=== PATIENT | female | born 1995 | race Caucasian/White ===

== ENCOUNTER 2016-06-14 01:10 | Observation (INO) | payer BC, OTHER ==
[~2016-06-14] VITALS: Ht 175.3 cm; Wt 106.2 kg
[2016-06-14] MEDS ORDERED: ONDANSETRON INJ 2 MG/ML 2 ML VIAL IV STA ×2 (01:32→04:29)
[2016-06-14] MEDS ORDERED: SODIUM CHLORIDE 0.9% 1000ML 1,000 ML IV STA ×2 (01:32→04:29)
[2016-06-14 01:51] LABS: HEMATOCRIT 37.4 % (37-47); MEAN CELL VOLUME 80.4 fL (80-100); MEAN CORPUSCULAR HEMOGLOBIN 27.7 pg (25-34); MEAN CORPUSCULAR HGB CONC 34.5 g/dl (32-36); MEAN PLATELET VOLUME 9.5 fL (7.4-10.4); PLATELET COUNT 274 K/uL (130-400); RED BLOOD COUNT 4.65 M/uL (4.2-5.4); WHITE BLOOD COUNT 15.19 K/uL (4.8-10.8)
[2016-06-14 02:09] LABS: BASO % 0.1 %; BASO ABS # 0.01 K/uL (0-0.2); CALCIUM 8.7 mg/dl (8.5-10.1); COMPLETE YES; EOS % 0.5 %; IG% 0.3 %; LYMPH % 8.2 %; LYMPH ABS # 1.25 K/uL (1.2-3.4); MONO % 5.1 %; NEUT % 85.8 %; POTASSIUM 4.1 mmol/L (3.5-5.1)
[2016-06-14] MEDS ORDERED: PROMETHAZINE HCL INJ 25 MG in SODIUM CHLORIDE 0.9% 50ML 50 ML IV STA (03:14)
--- NOTE | 2016-06-14 04:47 | EMERGENCY ROOM VISIT NOTE ---
History Report prepared by Christy: Bud Frias Under the Supervision of: Dr. Yue Allison D.O. First contact with patient: 01:18 Chief Complaint: ABDOMINAL PAIN Stated Complaint: FOOD POISONING History of Present Illness The patient is a 21 year old female who presents to the Emergency Room with complaints of constant abdominal pain that began 4.5 hours prior to arrival. The patient describes her abdominal pain as "sharp" and rates is as 5/10 in severity. The patient states that she ordered takeout from [employer] and began to experience her symptoms 30 minutes after eating. She has vomited multiple times, and had multiple bouts of diarrhea. She has taken 3 Motrin in the last four hours with no relief. 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 A total of 10 systems reviewed and were otherwise negative. Past Medical & Surgical The patient reports no past medical/surgical histories. Family History Diabetes mellitus FHx: cancer Social History Smoking Status: Never Smoker Alcohol Use: none Drug Use: none Marital Status: single Occupation Status: employed, [employer] student Current/Historical Medications No Active Prescriptions or Reported Meds Allergies Coded Allergies: No Known Allergies (Unverified , 06/14/16) Physical Exam Vital Signs Date Time Temp Pulse Resp B/P Pulse Ox O2 Delivery O2 Flow Rate FiO2 06/14/16 06:30 95 18 111/55 97 Room Air 06/14/16 04:46 85 20 111/72 96 Room Air 06/14/16 02:50 82 18 101/63 96 Room Air 06/14/16 01:11 36.9 112 20 113/81 98 Room Air Physical Exam General: Patient is vomiting on exam and diaphoretic. HEENT: Head - normocephalic and atraumatic Pupils are equal, round, and reactive to light. Extraocular eye muscles are intact, and sclera are anicteric. Nose - moist nasal mucosa without discharge. Mouth - moist buccal mucosa. Oropharynx is nonerythematous and there is no tonsillar exudate or edema noted. Neck: Supple; no JVD, nuchal rigidity, cervical lymphadenopathy. Heart: Tachycardiac rate with normal rhythm. There is a normal S1 and S2 with no murmurs, clicks, or gallops appreciated. Lungs: Clear to auscultation bilaterally with no wheezes, rales, or rhonchi. Abdomen: Soft, diffusely tender, nondistended, with good bowel sounds. There are no palpable pulsatile masses or hepatosplenomegaly. There is no guarding, rigidity, or rebound noted. Extremities: No evidence of cyanosis, clubbing, or edema. There are easily palpable peripheral pulses. Skin: warm and dry with good turgor and no rashes. Medical Decision & Procedures Laboratory Results 06/14/16 01:40 Red Blood Count 4.65, Mean Corpuscular Volume 80.4, Mean Corpuscular Hemoglobin 27.7, Mean Corpuscular Hemoglobin Concent 34.5, Mean Platelet Volume 9.5, Neutrophils (%) (Auto) 85.8, Lymphocytes (%) (Auto) 8.2, Monocytes (%) (Auto) 5.1, Eosinophils (%) (Auto) 0.5, Basophils (%) (Auto) 0.1, Neutrophils # (Auto) 13.03, Lymphocytes # (Auto) 1.25, Monocytes # (Auto) 0.77, Eosinophils # (Auto) 0.08, Basophils # (Auto) 0.01 06/14/16 01:40 Test 06/14/16 01:40 06/14/16 04:43 White Blood Count 15.19 K/uL (4.8-10.8) Red Blood Count 4.65 M/uL (4.2-5.4) Hemoglobin 12.9 g/dL (12.0-16.0) Hematocrit 37.4 % (37-47) Mean Corpuscular Volume 80.4 fL (80-100) Mean Corpuscular Hemoglobin 27.7 pg (25-34) Mean Corpuscular Hemoglobin Concent 34.5 g/dl (32-36) Platelet Count 274 K/uL (130-400) Mean Platelet Volume 9.5 fL (7.4-10.4) Neutrophils (%) (Auto) 85.8 % Lymphocytes (%) (Auto) 8.2 % Monocytes (%) (Auto) 5.1 % Eosinophils (%) (Auto) 0.5 % Basophils (%) (Auto) 0.1 % Neutrophils # (Auto) 13.03 K/uL (1.4-6.5) Lymphocytes # (Auto) 1.25 K/uL (1.2-3.4) Monocytes # (Auto) 0.77 K/uL (0.11-0.59) Eosinophils # (Auto) 0.08 K/uL (0-0.5) Basophils # (Auto) 0.01 K/uL (0-0.2) RDW Standard Deviation 44.7 fL (36.4-46.3) RDW Coefficient of Variation 15.3 % (11.5-14.5) Immature Granulocyte % (Auto) 0.3 % Immature Granulocyte # (Auto) 0.05 K/uL (0.00-0.02) Anion Gap 12.0 mmol/L (3-11) Est Creatinine Clear Calc Drug Dose 115.5 ml/min Estimated GFR () 93.3 Estimated GFR (Non- 80.5 BUN/Creatinine Ratio 14.0 (10-20) Calcium Level 8.7 mg/dl (8.5-10.1) Total Bilirubin 0.6 mg/dl (0.2-1) Direct Bilirubin 0.1 mg/dl (0-0.2) Aspartate Amino Transf (AST/SGOT) 40 U/L (15-37) Alanine Aminotransferase (ALT/SGPT) 81 U/L (12-78) Alkaline Phosphatase 49 U/L (45-117) Total Protein 7.6 gm/dl (6.4-8.2) Albumin 4.0 gm/dl (3.4-5.0) Lipase 96 U/L (73-393) Urine Color DK YELLOW Urine Appearance CLEAR (CLEAR) Urine pH 7.5 (4.5-7.5) Urine Specific [place] 1.032 (1.000-1.030) Urine Protein NEG (NEG) Urine Glucose (UA) NEG (NEG) Urine Ketones NEG (NEG) Urine Occult Blood NEG (NEG) Urine Nitrite NEG (NEG) Urine Bilirubin NEG (NEG) Urine Urobilinogen NEG (NEG) Urine Leukocyte Esterase TRACE (NEG) Urine WBC (Auto) 1-5 /hpf (0-5) Urine RBC (Auto) 0-4 /hpf (0-4) Urine Hyaline Casts (Auto) 0 /lpf (0-5) Urine Epithelial Cells (Auto) >30 /lpf (0-5) Urine Bacteria (Auto) 1+ (NEG) Urine Renal Epithelial Cells /lpf (0-5) Urine Mucus PRESENT (NONE PRSENT) Urine Yeast (Auto) (NONE PRSENT) Urine Test NEG (NEG) Laboratory results per my review. Medications Administered Medications (Trade) Dose Ordered Sig/Kristofer Route Start Time Stop Time Status Last Admin Dose Admin Sodium Chloride (Nss 1000ml) 1,000 ml @ 999 mls/hr Q1H1M STAT IV 06/14/16 01:32 06/14/16 02:32 DC 06/14/16 01:32 999 MLS/HR Ondansetron HCl 4 mg 4 mg NOW STAT IV 06/14/16 01:32 06/14/16 01:34 DC 06/14/16 01:32 4 MG Promethazine HCl 25 mg/Sodium Chloride 51 ml @ 204 mls/hr NOW STAT IV 06/14/16 03:14 06/14/16 03:28 DC 06/14/16 03:24 204 MLS/HR Sodium Chloride (Nss 1000ml) 1,000 ml @ 250 mls/hr Q4H STAT IV 06/14/16 04:29 06/14/16 08:28 06/14/16 04:35 250 MLS/HR Ondansetron HCl (Zofran Inj) 4 mg NOW STAT IV 06/14/16 04:29 06/14/16 04:30 DC 06/14/16 04:35 4 MG Procedure Medications Ordered: Zofran, Sodium Chloride, Promethazine HCl, ED Course 0130: Past medical records reviewed. The patient was evaluated in room B2. A complete history and physical exam was performed. An IV lock was initiated and labs were drawn as above. 0132: Ordered Zofran 4 mg IV, Sodium Chloride 1000 mL @ 999 mL/hr IV. 0253: I reevaluated the patient at this time, she is sleeping but her vitals are stable. 0314: The nursing staff informed me that the patient began to vomit at this time. 0314: Ordered Promethazine HCl 51 mL @ 204 mL/hr IV. 0349: The patient is sound asleep and hemodynamically stable at this time. 0421: I reevaluated the patient at this time. She is starting to vomit and abdominal pain is still present. 0428: I checked on the patient at this time. She is pale and diaphoretic and about to vomit again. I reexamined her abdomen, the pain could not be localized. The abdominal pain is diffuse. It does not localize to any specific part of the abdomen. 0429: Ordered Zofran 4 mg IV, Sodium Chloride 1000 mL @ 250 mL/hr IV. 0515: The patient is asleep again. I discussed the case with Dr. Aurelia Vanessa, he will evaluate the patient for further treatment. Medical Decision The patient is a 21 year old female who presents to the emergency department with vomiting and diarrhea. Differential diagnosis include; food borne illness, gastroenteritis, viral illness, appendicitis, dehydration, pancreatitis. Laboratory results were reviewed and show; a white count of 15.1, stable hemoglobin and hematocrit, 85% neutrophils, normal renal function, glucose of 124, AST of 40, ALT of 81, and lipase of 96. This is a 21-year-old female patient developed a very sudden onset of diffuse abdominal pain and vomiting. She's been here in the emergency department for some time with multiple episodes of antiemetics and still has persistent vomiting. The pain in her abdomen is not localized. Patient's nausea and vomiting are only temporarily treated with IV Zofran and IV Phenergan. She is on a normal saline drip at this time. I feel she will need inpatient care to further control her symptoms. Consults Time Called: 501 Consulting Physician: Dr. Aurelia Vanessa Returned Call: 05 I discussed the case with Dr. Aurelia Vanessa, he will evaluate the patient for further treatment. Impression Primary Impression: Intractable vomiting Scribe Attestation The scribe's documentation has been prepared under my direction and personally reviewed by me in its entirety. I confirm that the note above accurately reflects all work, treatment, procedures, and medical decision making performed by me. Departure Information Dispostion Being Evaluated By Hospitalist Prescriptions No Active Prescriptions or Reported Meds Referrals [facility] (PCP) Patient Instructions A Signature Page
[2016-06-14 05:34] LABS: MANUAL MICROSCOPIC REQUIRED? NO; REVIEW REQ? YES; URINE APPEARANCE CLEAR (CLEAR); URINE BILIRUBIN NEG (NEG); URINE COLOR DK YELLOW; URINE EPITHELIAL CELL AUTO >30 /lpf (0-5); URINE NITRITE NEG (NEG); URINE PH 7.5 (4.5-7.5); URINE SPECIFIC GRAVITY 1.032 (1.000-1.030); UROBILINOGEN NEG (NEG)
[2016-06-14 06:03] LABS: URINE MUCUS PRESENT (NONE PRSENT)
[2016-06-14 08:02] VITALS: O2SAT 97; Ht 175.3 cm; Wt 106.2 kg
[2016-06-14] MEDS ORDERED: PROMETHAZINE HCL INJ 25 MG in SODIUM CHLORIDE 0.9% 50ML 50 ML IV PRN (09:00)
[2016-06-14] MEDS ORDERED: ONDANSETRON INJ 2 MG/ML 2 ML VIAL IV PRN (09:00)
[2016-06-14 09:39] VITALS: O2SAT 98
[2016-06-14 10:30] VITALS: BP 91/56; PULSE 90; TEMP 37.3; O2SAT 98
[2016-06-14] MEDS ORDERED: SODIUM CHLORIDE 0.9% 1000ML 1,000 ML IV SCH (10:30)
[2016-06-14] MEDS ORDERED: ACETAMINOPHEN 325 MG TAB PO PRN (10:30)
[2016-06-14] MEDS ORDERED: IV FLUIDS COMPLETED PRN (10:45)
--- NOTE | 2016-06-14 14:34 | History and Physical ---
History & Physical Date & Time of Service: Jun 14, 2016 at 14:24 Chief Complaint: Intractable Vomiting Primary Care Physician: [facility] History of Present Illness Source: patient, hospital records 21 yo female with no significant medical history, presented with acute onset of vomiting and diarrhea. She was feeling well, ordered some take out. Shortly after finishing her food she started to feel ill and then vomited several times. Shortly after that her stools were loose. This all started around 7pm last night. Over night she continued to have intractable vomiting and loose stools. She came to the ED for evaluation. She was tachycardic, WBC elevated but electrolytes stable and renal function normal. She required several doses of anti-emetics but still was having vomiting. After several hours and the patient was not feeling well an admission was requested. She denies any severe abdominal pain. She did experience some cold sweats. No bloody diarrhea and in fact her last BM was prior to arrival in the ED. No one else ate the food. No sick contacts to her knowledge and no recent travel. Past Medical/Surgical History none Family History Diabetes mellitus FHx: cancer Mother - ovarian cancer Aunt - breast cancer Social History Smoking Status: Never Smoker Drug Use: none Marital Status: single Occupational Status: employed, [employer] student Allergies Coded Allergies: No Known Allergies (Unverified , 06/14/16) Home Medications No Active Prescriptions or Reported Meds Review of Systems Constitutional: + chills, + fatigue, + sweats, + weakness, No fever, No weight loss Eyes: No diplopia, No discharge, No eye pain, No problem reported, No redness, No worsening of vision ENT: No dental problems, No hearing loss, No nasal symptoms, No problem reported, No sore throat, No tinnitus, No trouble swallowing, No unusual epistaxis Respiratory: No cough, No dyspnea at rest, No dyspnea on exertion, No hemoptysis, No problem reported, No shortness of breath, No sputum, No wheezing Cardiovascular: No PND, No chest pain, No claudication, No edema, No orthopnea , No palpitations, No problem reported Abdomen: + diarrhea, + nausea, + vomiting, No GI bleeding, No constipation, No pain Musculoskeletal: No calf pain, No joint pain, No muscle pain, No problem reported, No swelling Genitourinary - Female: No dysuria, No urinary frequency, No urinary incontinence, No urinary urgency Neurologic: No balance problems, No memory loss, No numbness/tingling, No paralysis, No problem reported, No vertigo, No weakness Psychiatric: No anhedonism, No anxiety, No depression symptoms, No insomnia, No problem reported, No substance abuse Endocrine: No excessive thirst, No excessive urination, No fatigue, No problem reported Hematologic / Lymphatic: No abnormal bleeding/bruising, No clotting problems, No night sweats, No problem reported, No swollen lymph nodes Integumentary: No bleeding, No color change, No itch, No new/changing skin lesions, No problem reported, No rash Allergic / Immunologic: No environmental allergies, No food allergies, No frequent infections, No hives, No pet sensitivities, No poor healing, No problem reported, No prolonged convalescence, No seasonal allergies Physical Exam Vital Signs Date Time Temp Pulse Resp B/P Pulse Ox O2 Delivery O2 Flow Rate FiO2 06/14/16 10:30 Room Air 06/14/16 10:30 37.3 90 18 91/56 98 Room Air 06/14/16 09:39 36.9 88 18 101/54 98 06/14/16 08:20 88 18 101/54 98 Room Air 06/14/16 08:02 97 Room Air 06/14/16 06:30 95 18 111/55 97 Room Air 06/14/16 04:46 85 20 111/72 96 Room Air 06/14/16 02:50 82 18 101/63 96 Room Air 06/14/16 01:11 36.9 112 20 113/81 98 Room Air General Appearance: WD/WN, no apparent distress Head: normocephalic, atraumatic Eyes: normal inspection, EOMI, sclerae normal ENT: normal ENT inspection, hearing grossly normal, pharynx normal Neck: supple, no adenopathy, no JVD, trachea midline Respiratory/Chest: chest non-tender, lungs clear, normal breath sounds, no respiratory distress, no accessory muscle use Cardiovascular: regular rate, rhythm, no edema, no gallop, no JVD, no murmur, normal peripheral pulses Abdomen/GI: normal bowel sounds, non tender, soft, no organomegaly Back: normal inspection, no CVA tenderness, no muscle spasm, normal range of motion Extremities/Musculoskelatal: normal inspection, no calf tenderness, normal capillary refill, no pedal edema, normal range of motion 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, no motor/sensory deficits, alert, normal mood/affect, normal reflexes, oriented x 3 Skin: normal color, warm/dry, no rash Lymphatic: no adenopathy Diagnostics Laboratory Results Results Past 24 Hours Test 06/14/16 01:40 06/14/16 04:43 Range/Units White Blood Count 15.19 4.8-10.8 K/uL Red Blood Count 4.65 4.2-5.4 M/uL Hemoglobin 12.9 12.0-16.0 g/dL Hematocrit 37.4 37-47 % Mean Corpuscular Volume 80.4 80-100 fL Mean Corpuscular Hemoglobin 27.7 25-34 pg Mean Corpuscular Hemoglobin Concent 34.5 32-36 g/dl Platelet Count 274 130-400 K/uL Mean Platelet Volume 9.5 7.4-10.4 fL Neutrophils (%) (Auto) 85.8 % Lymphocytes (%) (Auto) 8.2 % Monocytes (%) (Auto) 5.1 % Eosinophils (%) (Auto) 0.5 % Basophils (%) (Auto) 0.1 % Neutrophils # (Auto) 13.03 1.4-6.5 K/uL Lymphocytes # (Auto) 1.25 1.2-3.4 K/uL Monocytes # (Auto) 0.77 0.11-0.59 K/uL Eosinophils # (Auto) 0.08 0-0.5 K/uL Basophils # (Auto) 0.01 0-0.2 K/uL RDW Standard Deviation 44.7 36.4-46.3 fL RDW Coefficient of Variation 15.3 11.5-14.5 % Immature Granulocyte % (Auto) 0.3 % Immature Granulocyte # (Auto) 0.05 0.00-0.02 K/uL Sodium Level 142 136-145 mmol/L Potassium Level 4.1 3.5-5.1 mmol/L Chloride Level 104 98-107 mmol/L Carbon Dioxide Level 26 21-32 mmol/L Anion Gap 12.0 3-11 mmol/L Blood Urea Nitrogen 14 7-18 mg/dl Creatinine 1.00 0.60-1.20 mg/dl Est Creatinine Clear Calc Drug Dose 115.5 ml/min Estimated GFR () 93.3 Estimated GFR (Non- 80.5 BUN/Creatinine Ratio 14.0 10-20 Random Glucose 124 70-99 mg/dl Calcium Level 8.7 8.5-10.1 mg/dl Total Bilirubin 0.6 0.2-1 mg/dl Direct Bilirubin 0.1 0-0.2 mg/dl Aspartate Amino Transf (AST/SGOT) 40 15-37 U/L Alanine Aminotransferase (ALT/SGPT) 81 12-78 U/L Alkaline Phosphatase 49 45-117 U/L Total Protein 7.6 6.4-8.2 gm/dl Albumin 4.0 3.4-5.0 gm/dl Lipase 96 73-393 U/L Urine Color DK YELLOW Urine Appearance CLEAR CLEAR Urine pH 7.5 4.5-7.5 Urine Specific [place] 1.032 1.000-1.030 Urine Protein NEG NEG Urine Glucose (UA) NEG NEG Urine Ketones NEG NEG Urine Occult Blood NEG NEG Urine Nitrite NEG NEG Urine Bilirubin NEG NEG Urine Urobilinogen NEG NEG Urine Leukocyte Esterase TRACE NEG Urine WBC (Auto) 1-5 0-5 /hpf Urine RBC (Auto) 0-4 0-4 /hpf Urine Hyaline Casts (Auto) 0 0-5 /lpf Urine Epithelial Cells (Auto) >30 0-5 /lpf Urine Bacteria (Auto) 1+ NEG Urine Renal Epithelial Cells 0-5 /lpf Urine Mucus PRESENT NONE PRSENT Urine Yeast (Auto) NONE PRSENT Urine Test NEG NEG Impression Assessment and Plan 21 yo female with acute nausea/vomiting and diarrhea - Acute gastroenteritis: either from food she ate or viral GI illness that has been going around community will give supportive care with fluids and antiemetics anticipate she will feel better in 12-24 hours and will try to get her out just observation Level of Care Med/Surg Advanced Directives Existing Advance Directive: No Existing Living Will: No Existing Power of Radio Assembler: No Resuscitation Status FULL RESUSCITATION VTE Prophylaxis VTE Risk Assessment Done? Y/N: Yes Risk Level: Low Additional Copies To [employer]
[2016-06-14] MEDS ORDERED: ONDA4TAB10 SL (15:08)
--- NOTE | 2016-06-14 15:11 | Discharge Instructions ---
Discharge Instructions Admission Reason for Admission: Intractable Vomiting Discharge Discharge Diagnosis / Problem: Acute gastroenteritis Discharge Goals Goal(s): Decrease discomfort, Improve function Activity Recommendations Activity Limitations: resume your previous activity Lifting Limitations: none Exercise/Sports Limitations: none May Resume Sexual Activity: when tolerated Shower/Bathe: no limitations Driving or Machine Use: no limitations . Instructions / Follow-Up Instructions / Follow-Up Medications: - Zofran: use only as needed for any nausea or vomiting Make sure to stay well hydrated and drink fluids that have electrolytes such as Gatorade or Vitamin water. Advance your diet as tolerated, start with crackers and rice and toast, avoid foods high in fiber for another few days. FOLLOW UP - no need for scheduled follow up, if you have any new issues you can follow up with [facility] Current Hospital Diet Patient's current hospital diet: Low Fiber Diet, Low Fat Diet Discharge Diet Recommended Diet: Low Fiber Diet Pending Studies Studies pending at discharge: no Laboratory Results Last Resulted CBC 06/14/16 01:40 Red Blood Count 4.65, Mean Corpuscular Volume 80.4, Mean Corpuscular Hemoglobin 27.7, Mean Corpuscular Hemoglobin Concent 34.5, Mean Platelet Volume 9.5, Neutrophils (%) (Auto) 85.8, Lymphocytes (%) (Auto) 8.2, Monocytes (%) (Auto) 5.1, Eosinophils (%) (Auto) 0.5, Basophils (%) (Auto) 0.1, Neutrophils # (Auto) 13.03, Lymphocytes # (Auto) 1.25, Monocytes # (Auto) 0.77, Eosinophils # (Auto) 0.08, Basophils # (Auto) 0.01 Last Resulted BMP 06/14/16 01:40 Medical Emergencies . Who to Call and When: Medical Emergencies: If at any time you feel your situation is an emergency, please call 911 immediately. . Non-Emergent Contact Non-Emergency issues call your: Primary Care Provider Call Non-Emergent contact if: you have a fever, you have any medication questions . . "Provider Documentation" section prepared by Lester Connors. VTE Core Measure Inpt VTE Proph given/why not?: Treatment not indicated [place] Drug Monitoring Program Search Results: no issues identified
[2016-06-14 15:14] VITALS: BP 91/56; PULSE 90; TEMP 37.3; O2SAT 98
[2016-06-14 15:56] VITALS: BP 108/65; PULSE 101; TEMP 37.9; O2SAT 98
--- NOTE | 2016-06-15 08:21 | Discharge Summary ---
Discharge Summary Admission Date: Jun 14, 2016 at 08:54 Discharge Date: Jun 14, 2016 Discharge Disposition: Home Principal Diagnosis: Acute gastroenteritis Procedures: none Consultations: none Medication Reconciliation New Medications: Ondasetron Odt (Zofran Odt) 4 Mg Tab 4 MG SL Q6H for Nausea, #6 TAB Discharge Exam Patient observed during the day, treated with IV fluids, did not require any anti-emetics after arriving to the floor. Tolerating some clear liquids, she would like to go home and rest. Encouraged her to stay well hydrated and she will advance her diet as tolerated. Review of Systems: Constitutional: + fatigue, + weakness, No chills, No fever, No problem reported, No sweats, No weight loss Eyes: No diplopia, No discharge, No eye pain, No problem reported, No redness, No worsening of vision ENT: No dental problems, No hearing loss, No nasal symptoms, No problem reported, No sore throat, No tinnitus, No trouble swallowing, No unusual epistaxis Respiratory: No cough, No dyspnea at rest, No dyspnea on exertion, No hemoptysis, No problem reported, No shortness of breath, No sputum, No wheezing Cardiovascular: No PND, No chest pain, No claudication, No edema, No orthopnea, No palpitations, No problem reported Abdomen: No GI bleeding, No constipation, No diarrhea, No nausea, No pain, No problem reported, No vomiting Musculoskeletal: No calf pain, No joint pain, No muscle pain, No problem reported, No swelling Genitourinary - Female: No dysuria, No urinary frequency, No urinary incontinence, No urinary retention, No urinary urgency Neurologic: No balance problems, No memory loss, No numbness/tingling, No paralysis, No problem reported, No vertigo, No weakness Psychiatric: No anhedonism, No anxiety, No depression symptoms, No insomnia , No problem reported, No substance abuse Endocrine: No excessive thirst, No excessive urination, No fatigue, No problem reported Hematologic / Lymphatic: No abnormal bleeding/bruising, No clotting problems , No night sweats, No problem reported, No swollen lymph nodes Integumentary: No bleeding, No color change, No itch, No new/changing skin lesions, No problem reported, No rash Physical Exam: General Appearance: WD/WN, no apparent distress Eyes: normal inspection, EOMI, sclerae normal ENT: normal ENT inspection, hearing grossly normal, pharynx normal Neck: supple, no adenopathy, no JVD, trachea midline Respiratory/Chest: chest non-tender, lungs clear, normal breath sounds, no respiratory distress, no accessory muscle use Cardiovascular: regular rate, rhythm, no edema, no gallop, no JVD, no murmur , normal peripheral pulses Abdomen / GI: normal bowel sounds, non tender, soft, no organomegaly Extremities: normal inspection, no calf tenderness, normal capillary refill , no pedal edema, normal range of motion, pelvis stable Neurologic/Psychiatric: it professional II-XII nml as tested, no motor/sensory deficits , alert, normal mood/affect, normal reflexes, oriented x 3 Skin: normal color, warm/dry, no rash Lymphatic: no adenopathy Hospital Course 21 yo female with acute nausea/vomiting and diarrhea - Acute gastroenteritis: either from food she ate or viral GI illness that has been going around community will give supportive care with fluids and antiemetics (never required any doses once she arrived to the floor) tolerating clear liquids, no further vomiting or diarrhea, she would like to go home and rest encouraged her to stay well hydrated, drink fluids with electrolytes, advance diet as tolerated Total Time Spent: Less than 30 minutes This includes examination of the patient, discharge planning, medication reconciliation, and communication with other providers. Discharge Instructions Please refer to the electronic Patient Visit Report (Discharge Instructions) for additional information. Follow-Up [facility] as needed Additional Copies To [facility]
== END 2016-06-14 16:15 | disposition home or self-care (01) ==
LOC: ENRESERVDT → ENRESERVTM → C.EDB 01:11 → C.MS2W 08:54
PROVIDERS: ADMIT Internal Medicine; ATTEND Internal Medicine
DX: K52.9 Noninfective gastroenteritis and colitis, unspecified (principal); Z83.3 Family history of diabetes mellitus

== ENCOUNTER → 2016-09-06 | Outpatient (CLI) | payer OTHER ==
[~2016-09-06] MED LIST: ONDA4TAB10 SL
[2016-09-09 01:17] LABS: CHLAMYDIA TRACH RNA*** NOT DETECTED (NOT DETECTED); GC (NEIS GONORRHOEAE)RNA** NOT DETECTED (NOT DETECTED)
== END | disposition home or self-care (01) ==
LOC: C.LABSPEC 18:04
PROVIDERS: ATTEND Physician Assistant
DX: Z01.419 Encounter for gynecological examination (general) (routine) without abnormal findings (principal)

== ENCOUNTER → 2016-09-06 | Outpatient (CLI) | payer OTHER | END | disposition home or self-care (01) | LOC: C.PAPS 10:22 | PROVIDERS: ATTEND Physician Assistant | DX: Z01.419 Encounter for gynecological examination (general) (routine) without abnormal findings (principal) ==